=== PATIENT | male | born 1955 | race African-American/Black ===

== ENCOUNTER 2020-10-01 03:42 | Emergency (ER) | payer MEDICARE, OTHER ==
[~2020-10-01] VITALS: Ht 182.9 cm; Wt 61.0 kg
[2020-10-01] MEDS ORDERED: ONDANSETRON HCL 4MG/2ML INJ IV STA (04:19)
[2020-10-01] MEDS ORDERED: SODIUM CHLORIDE 0.9% 1,000 ML IV ONE (04:30)
[2020-10-01] MEDS ORDERED: FENTANYL CITRATE/PF 50MCG/ML 2ML VIAL IV ONE (04:30)
[2020-10-01 04:44] LABS: BASOPHILS % 0.5 % (0.0-2.0); EOSINOPHILS % 0.2 % (0.0-5.0); HEMATOCRIT. 33.8 % (42.0-52.0); HEMOGLOBIN. 11.1 g/dL (14.0-18.0); LYMPHOCYTES % 10.2 % (20.0-50.0); MEAN CORPUSCULAR HEMOGLOBIN 26.5 pg (28.0-32.0); MEAN CORPUSCULAR VOLUME 80.6 fL (80.0-94.0); MEAN PLATELET VOLUME 7.2 fl (7.4-10.4); MONOCYTES % 8.4 % (2.0-8.0); NEUTROPHILS % 80.7 % (40.0-76.0); PLATELET 249 x1000/uL (130-400); RED BLOOD CELL COUNT 4.19 mill/uL (4.7-6.1); RED CELL DISTRIBUTION WIDTH 14.7 % (11.6-14.6)
[2020-10-01 05:01] LABS: CHLORIDE 105 mEq/L (98-107)
[2020-10-01] MEDS ORDERED: IBUP-2028 MT (06:07)
[2020-10-01 06:29] VITALS: BP 117/64
[2020-10-01] MEDS ORDERED: IOHEXOL-300 100 ML BOTTLE ONE (07:13)
== END 2020-10-01 06:40 | disposition home or self-care (01) ==
LOC: ER 03:42
DX: S42.392A Other fracture of shaft of left humerus, initial encounter for closed fracture (principal); S09.8XXA Other specified injuries of head, initial encounter; I95.9 Hypotension, unspecified; J44.9 Chronic obstructive pulmonary disease, unspecified; W01.0XXA Fall on same level from slipping, tripping and stumbling without subsequent striking against object, initial encounter; Y93.9 Activity, unspecified; Y92.9 Unspecified place or not applicable
CPT/HCPCS: 36415; 70450; 71045; 73030; 73060; 74177; 80053; 84484; 85025; 86850; 86900; 86901; 93005; 96361; 96374; 96375; 99285; J2405; J3010; J7030; Q9967